=== PATIENT | female | born 1995 | race African-American/Black ===

== ENCOUNTER 2017-07-30 17:36 | Emergency (ER) | payer MEDICAID ==
[~2017-07-30] VITALS: Ht 170.2 cm; Wt 73.0 kg
[2017-07-30] MEDS ORDERED: KETOROLAC 30MG/ML VIAL IV STA (19:50)
[2017-07-30] MEDS ORDERED: SODIUM CHLORIDE 0.9% 1,000 ML IV ONE (19:50)
[2017-07-30] MEDS ORDERED: METOCLOPRAMIDE HCL 10MG/2ML VIAL IV STA (19:50)
[2017-07-30] MEDS ORDERED: DIPHENHYDRAMINE 50MG/ML VIAL IV ONE (20:00)
[2017-07-30 22:08] VITALS: BP 121/79
== END 2017-07-30 22:08 | disposition home or self-care (01) ==
LOC: ER 17:36
DX: B34.9 Viral infection, unspecified (principal); S09.90XA Unspecified injury of head, initial encounter; W22.8XXA Striking against or struck by other objects, initial encounter; Y93.89 Activity, other specified; Y92.89 Other specified places as the place of occurrence of the external cause; Y99.8 Other external cause status
CPT/HCPCS: 81025; 87804; 96361; 96374; 96375; 99285; J1200; J1885; J2765; J7030; Z7610